=== PATIENT | male | born 1985 | race Caucasian/White ===

== ENCOUNTER → 2016-12-02 | Day surgery (SDC) | payer BC ==
[~2016-12-02] MED LIST: BECL8.7A6 IH; DEXL60CA PO; FENTANYL PF 100 MCG/2 ML VIAL. IV PRN; FLUT16SP NS; HYDROMORPHONE 2 MG/ML VIAL. IV PRN; IV RINGERS,LACTATED 1000ML 1,000 ML IV SCH; LIDOCAINE 1% 1 ML SYRINGE. ID PRN; LIDOCAINE 2% PF Vial for OR 5 ML VIAL. ONE; LORA10TA68 PO; MONT10TA9 PO; MORPHINE SULFATE 2 MG/ML DISP.SYRIN. IV PRN; ONDANSETRON PF 4 MG/2 ML VIAL. IV PRN; PROAIR HFA8.5 GM INH; PROCHLORPERAZINE 10 MG/2 ML VIAL. IV PRN; PROPOFOL 40 ML IV ONE
[2016-12-02 10:40] VITALS: BP 111/72
--- NOTE | 2016-12-03 16:10 | PATHOLOGY ---
PATHOLOGY REPORT * * * * * * * * FINAL DIAGNOSIS: A. Small bowel biopsy: - No significant pathologic abnormalities. B. Gastric biopsy, antrum: - Congestion and mild chronic inflammation. C. Esophageal biopsy, distal esophagus: - Segments of esophagogastric and gastric mucosa showing mild chronic inflammation. D. Esophageal biopsy, middle esophagus: - Segments of hyperplastic squamous esophageal mucosa consistent with reflux esophagitis. E. Colon biopsy, cecal polyp: - Consistent with hyperplastic polyp/prominent fold. COMMENT: Sections of the small bowel biopsy reveal segments of duodenal and small intestine mucosa. Where best oriented, the mucosal villi appear normal and show no sprue-like changes or significant inflammatory changes. Sections of the gastric antral biopsy show congestion and mild chronic inflammation. An immunoperoxidase stain for Helicobacter is obtained. No Helicobacter organisms are identified. Sections of the distal esophageal biopsy reveal a segment of esophagogastric mucosa and two segments of gastric mucosa showing mild chronic inflammation. There is no evidence of Smith's change, dysplasia, or malignancy. Sections of the middle esophageal biopsy reveal segments of tangentially oriented hyperplastic squamous esophageal mucosa consistent with reflux esophagitis. There is no evidence of Smith's change, dysplasia, or malignancy. Sections of the cecal biopsy reveal colonic mucosa consistent with hyperplastic polyp/prominent fold. There are no adenomatous changes or evidence of malignancy. (JPM:mgr; d/t: 12/03/16) Special Stain Performed: Immunoperoxidase stain for Helicobacter (B1) REPORT ELECTRONICALLY SIGNED BY: Syed Vivar M.D. DATE/TIME: 12/03/2016 16:09 * * * * * * * * GROSS PATHOLOGY: A. Received in formalin labeled "Jamie Rapplean, small bowel," are four segments of mcdonald soft tissue measuring 1.0 x 0.8 x 0.1 cm in aggregate dimensions and ranging from 0.2 to 0.4 cm in maximum dimension. The specimen is submitted entirely in cassette A1. B. Received in formalin labeled "Jamie Rapplean, gastric antrum," are two segments of mcdonald soft tissue measuring 0.7 x 0.4 x 0.1 cm in aggregate dimensions and ranging from 0.3 to 0.7 cm in maximum dimension. The specimen is submitted entirely in cassette B1. C. Received in formalin labeled "Jamie Rapplean, distal esophagus," are two segments of mcdonald soft tissue measuring 0.5 x 0.5 x 0.1 cm in aggregate dimensions and ranging from 0.3 to 0.5 cm in maximum dimension. The specimen is submitted entirely in cassette C1. D. Received in formalin labeled "Jamie Kumar, mid esophagus," are three segments of mcdonald soft tissue measuring 0.7 x 0.7 x 0.1 cm in aggregate dimensions and ranging from 0.3 to 0.5 cm in maximum dimension. The specimen is submitted entirely in cassette D1. E. Received in formalin labeled "Jamie Kumar, cecum polyp," is a segment of mcdonald soft tissue measuring 0.5 cm in maximum dimension. The specimen is submitted entirely in cassette E1. (CAA; 12/02/2016) INITIAL CPT CODE(S): A; 84503 B; 98508, 05157 C; 11343 D; 51189 E; 61669 Professional services performed by [facility] [place] [address] Technical services performed by [facility] at [address] [place] [address], [facility] [address], [place] [address]. SPECIMEN(S) RECEIVED: A.Small bowel biopsy B.Gastric antrum C.Distal esophagus D.Mid esophagus E.Cecum polyp CLINICAL HISTORY: GERD, abdominal pain, GI bleed PATIENT: JAMIE KUMAR /AGE: 704/13/1985 (Age: 31) PATIENT #: [id number] ALT CASE #: SPECIMEN COLLECTION DATE: 12/02/2016 SPECIMEN RECEIVED DATE: 12/02/2016 [facility] - [address] [place] [address] - PHONE: [phone] * * * END OF REPORT * * *
== END | disposition home or self-care (01) ==
LOC: ENDOS 08:27
PROVIDERS: ATTEND Internal Medicine Gastroenterology
DX: K64.0 First degree hemorrhoids (principal); D12.0 Benign neoplasm of cecum; K62.5 Hemorrhage of anus and rectum; K21.0 Gastro-esophageal reflux disease with esophagitis; K20.0 Eosinophilic esophagitis; I10 Essential (primary) hypertension; M19.90 Unspecified osteoarthritis, unspecified site; F41.9 Anxiety disorder, unspecified; F32.9 Major depressive disorder, single episode, unspecified
CPT/HCPCS: 43239; 43450; 45380; J2704; 88305; 88342; G0641